=== PATIENT | male | born 1975 ===

== ENCOUNTER 2020-07-04 21:19 | Emergency (ER) | payer SELFPAY ==
[2020-07-04 21:26] VITALS: BP 157/98; PULSE 83; RESP 18; TEMP 36.3; O2SAT 98
--- NOTE | 2020-07-04 21:50 | PC.NURSE ---
Pt states he is running out to his car to get his work phone
--- NOTE | 2020-07-04 21:57 | ED.GENADULT ---
HPI - General Adult General Chief complaint: Extremity Injury, Upper Stated complaint: bilat arm pain Time Seen by Provider: 07/04/20 21:45 History of Present Illness HPI narrative: Patient 44-year-old gentleman who presents the emergency department with chief complaint of carpal tunnel pain. Patient reports that he has been taking gabapentin and been taking Tylenol and ibuprofen. Patient states that he is from [place] and currently doing work in this area. The patient reports that he has not seen a doctor in some time and reports that has not had a narcotic prescription in some time. In discussion with the other physician who happened to be present in the emergency department at the same time and was working at another facility yesterday this exact patient walked into the ER there and was seen at their facility and given a prescription for narcotics yesterday. After questioning the patient if he had been seen recently the patient said that he forgot his phone in his car and walked out to his vehicle and has not returned. Related Data Home Medications Medication Instructions Recorded Confirmed gabapentin 1,200 mg PO TID 07/04/20 07/04/20 Allergies Allergy/AdvReac Type Severity Reaction Status Date / Time amoxicillin Allergy Rash Verified 07/04/20 21:30 tramadol [From Ultram] Allergy Swelling Verified 07/04/20 21:31 of Lip/Tongue/Throat Review of Systems Review of Systems: Narrative: A 10 system review of systems was completed on the patient and is negative except for what is stated in the HPI. Nursing and ancillary documentation was reviewed. Exam Narrative: Exam Narrative: GENERAL: Well-appearing, well-nourished, and in no acute distress. HEAD: Normocephalic, atraumatic. EYES: PERRLA and EOMI. ENT: Nares clear, no rhinorrhea or epistaxis. Mucous membranes moist. NECK: Supple. CHEST: Clear to auscultation. No respiratory distress. HEART: Regular rate and rhythm. No murmur heard. Normal peripheral pulses. ABDOMEN: Soft, nontender, nondistended, normal active bowel sounds. EXTREMITIES: Normal range of motion. No edema. SKIN: Warm, dry, no rash. NEURO: No focal deficits. Alert and oriented x3. PSYCH: Normal mood and affect. Course Vital Signs Vital signs: Vital Signs Temperature 36.3 C L 07/04/20 21:26 Pulse Rate 83 07/04/20 21:26 Respiratory Rate 18 07/04/20 21:26 Blood Pressure 157/98 H 07/04/20 21:26 Pulse Oximetry 98 07/04/20 21:26 Temperature 36.3 C L 07/04/20 21:26 Pulse Rate 83 07/04/20 21:26 Respiratory Rate 18 07/04/20 21:26 Blood Pressure 157/98 H 07/04/20 21:26 Pulse Oximetry 98 07/04/20 21:26 Medical Decision Making Vital Signs Vital Signs: Vital Signs Temperature 36.3 C L 07/04/20 21:26 Pulse Rate 83 07/04/20 21:26 Respiratory Rate 18 07/04/20 21:26 Blood Pressure 157/98 H 07/04/20 21:26 Pulse Oximetry 98 07/04/20 21:26 Temperature 36.3 C L 07/04/20 21:26 Pulse Rate 83 07/04/20 21:26 Respiratory Rate 18 07/04/20 21:26 Blood Pressure 157/98 H 07/04/20 21:26 Pulse Oximetry 98 07/04/20 21:26 Discharge Plan Discharge Clinical Impression: Bilateral wrist pain Patient Disposition: Elopement After Seen by Prov Condition: Stable Prescriptions: No Action gabapentin 600 mg Tablet 1,200 mg PO TID RF: 0 Follow-up/Referrals: PHYSICIAN,HEAD BUTLER [Primary Care Provider] - Time of Disposition: 22:01
--- NOTE | 2020-07-04 22:03 | PC.NURSE ---
Pt has not returned to his room
== END 2020-07-04 22:10 | disposition left against medical advice (07) ==
PROVIDERS: Emergency Provider Emergency Medicine
DX: M25.532 Pain in left wrist (principal); M25.531 Pain in right wrist
CPT/HCPCS: 99281